=== PATIENT | male | born 1955 | race Caucasian/White ===

== ENCOUNTER → 2020-07-07 10:15 | Outpatient (CLI) | payer OTHER, SELFPAY ==
[2020-07-07 11:40] LABS: PSA,Total- Diagnostic 0.96 ng/mL (0.0-4.0)
== END ==
PROVIDERS: PCP Family Medicine; Referring Provider Nurse Practitioner Adult Health; Visit Provider Nurse Practitioner Adult Health
DX: N40.3 Nodular prostate with lower urinary tract symptoms (principal)
CPT/HCPCS: 36415; 84153

== ENCOUNTER → 2020-11-06 09:14 | Outpatient (CLI) | payer OTHER, SELFPAY ==
[2020-11-06 11:08] LABS: PSA,Total- Diagnostic 1.28 ng/mL (0.0-4.0)
== END ==
PROVIDERS: PCP Family Medicine; Referring Provider Urology; Visit Provider Urology
DX: N40.2 Nodular prostate without lower urinary tract symptoms (principal)
CPT/HCPCS: 36415; 84153

== ENCOUNTER → 2020-11-24 | Outpatient (CLI) | payer OTHER, SELFPAY ==
--- NOTE | 2020-11-24 | IMM_PTH ---
PATIENT: STANLEY STANFORD LOC: [facility] U#:[id number] AGE/SX: 64/M ROOM: RE11/24/[address]: Dr. Marco Altamirano MD : 1955 BED: DIS: 11/24/2020 SPEC #: [id number] RECD: 11/26/20 13:41 STATUS: ABBIE REQ #: [id number] MONSERRAT: 11/24/20 00:[address]: Marco Altamirano DEPT: IMMUNOHISTOCHEMISTRY RECD BY: Jocelin Sargent ENTERED: 11/26/20 13:41 SP TYPE: IMMUNO OTHR DR: Dr. Shantelle Thomas, DO Tissues: E - PROSTATE LEFT Procedures: P40 (add) 34BE12 (initial) PHYSICIAN & INSTITUTION [place] [id number] SPECIMEN INFORMATION: Tissue Source: E - Left prostate, mid, core biopsy Clinical Info: Increased PSA Specimen Number: [id number] E CPT code: 98627, 71051 METHODOLOGY: Deparaffinized sections of prefer/formalin-fixed tissue or PAP/DQ stained slides are incubated with monoclonal/polyclonal antibodies/oligonucleotide probes. Localization is made via biotin free immunoperoxidase method. Appropriate controls are performed and reacted as expected. Results on target cell population are indicated in the following table: RESULTS: ANTIBODY / CLONE RESULT Block E 34BE12 (34BE12) positive P40 (BC28) positive These tests were developed and their performance characteristics determined by [facility]. They may not have been cleared or approved by the U.S. Food and Drug Administration. The FDA has determined that such clearance or approval is not necessary. The above immunohistochemical/dualISH markers are ordered and reviewed by the Pathologist. INTERPRETATION: Milo Chandler prostate, mid, core biopsy: Benign prostatic tissue. AM:emiliana 11/27/2020
--- NOTE | 2020-11-24 08:00 | PROSBIL_PTH ---
PATIENT: STANLEY STANFORD LOC: [facility] U#:[id number] AGE/SX: 64/M ROOM: RE11/24/[address]: Dr. Marco Altamirano MD : 1955 BED: DIS: 11/24/2020 SPEC #: [id number] RECD: 11/24/20 12:30 STATUS: ABBIE REGiselle #: [id number] MONSERRAT: 11/24/20 08:[address]: Marco Altamirano DEPT: SURGICAL PATHOLOGY RECD BY: Dotty Perrin ENTERED: 11/25/20 10:01 SP TYPE: PROST BX OSCAR DR: Dr. Shantelle Thomas, DO Tissues: A - PROSTATE RIGHT B - PROSTATE RIGHT C - PROSTATE RIGHT D - PROSTATE LEFT E - PROSTATE LEFT F - PROSTATE LEFT Procedures: PROSTATE BX HEADER OPERATION: Prostate biopsy PRE-OP DIAGNOSIS: Increased PSA TISSUE SUBMITTED: A - Right apex, B - Right mid, C - Right base, D - Left apex, E - Left mid, F - Left base MICROSCOPIC DIAGNOSIS A. Right prostate, apex, core biopsy: Benign prostatic tissue. B. Right prostate, mid, core biopsy: Focal glandular atrophy. C. Right prostate, base, core biopsy: Benign prostatic tissue. D. Left prostate, apex, core biopsy: Benign prostatic tissue. E. Left prostate, mid, core biopsy: Benign prostatic tissue. See comment. F. Left prostate, base, core biopsy: Focal glandular atrophy. AM:emiliana 11/26/2020 COMMENT E. Immunohistochemistry ([id number]) supports the above diagnosis. Case has been reviewed in consultation with Dr. Yusuf who concurs with the above diagnosis. IDC:[email or web address] MICROSCOPIC DESCRIPTION Slides are reviewed. GROSS DESCRIPTION A - Received is one container designated prostate, right apex. The specimen consists of two elongated fragments of light brand-white soft tissue each measuring 1 cm in length and 0.1 cm in diameter. The specimen is totally submitted in one cassette. B - Received is one container designated prostate, right mid. The specimen consists of two elongated fragments of light brand-white soft tissue each measuring 1 cm in length and 0.1 cm in diameter. The specimen is totally submitted in one cassette. C - Received is one container designated prostate, right base. The specimen consists of two elongated fragments of light brand-white soft tissue each measuring 0.8 cm in length and 0.1 cm in diameter. The specimen is totally submitted in one cassette. D - Received is one container designated prostate, left apex. The specimen consists of two elongated fragments of light brand-white soft tissue each measuring 1 cm in length and 0.1 cm in diameter. The specimen is totally submitted in one cassette. E - Received is one container designated prostate, left mid. The specimen consists of two elongated fragments of light brand-white soft tissue each measuring 1 cm in length and 0.1 cm in diameter. The specimen is totally submitted in one cassette. F - Received is one container designated prostate, left base. The specimen consists of two elongated fragments of light brand-white soft tissue each measuring 1 cm in length and 0.1 cm in diameter. The specimen is totally submitted in one cassette. / AM:emiliana 11/25/20 TC:5 CPT: 08153 x6
== END | disposition home or self-care (01) ==
LOC: LABSPEC 16:42
PROVIDERS: PCP Family Medicine; Referring Provider Urology; Visit Provider Urology
DX: N40.2 Nodular prostate without lower urinary tract symptoms (principal); R97.20 Elevated prostate specific antigen [PSA]
CPT/HCPCS: 88305; 88341; 88342; G0416

== ENCOUNTER 2021-11-09 14:51 | Outpatient (CLI) | payer OTHER, SELFPAY ==
[2021-11-09 16:30] LABS: PSA,Total- Diagnostic 1.12 ng/mL (0.0-4.0)
== END 2021-11-09 23:59 | disposition short-term general hospital (02) ==
PROVIDERS: PCP Family Medicine; Referring Provider Urology; Visit Provider Urology
DX: R97.20 Elevated prostate specific antigen [PSA] (principal)
CPT/HCPCS: 36415; 84153

== ENCOUNTER → 2024-07-31 | Outpatient (CLI) | payer MEDICARE, OTHER, SELFPAY ==
[2024-07-31 10:54] LABS: PSA,Total- Diagnostic 1.67 ng/mL (0.0-4.0)
== END | disposition home or self-care (01) ==
LOC: LAB 08:42
PROVIDERS: PCP Family Medicine; Referring Provider Urology; Visit Provider Urology
DX: R97.20 Elevated prostate specific antigen [PSA] (principal)
CPT/HCPCS: 36415; 84153